=== PATIENT | male | born 1990 | race African-American/Black ===

== ENCOUNTER 2016-11-30 23:36 | Emergency (ER) | payer SELFPAY ==
--- NOTE | ~2016-11-30 | EKG ---
PATIENT: BELKIS RANDOLPH UNIT #: [id number] Ventricular Rate: 91 BPM Atrial Rate: 91 BPM P-R Interval: 148 ms QRS Duration: 96 ms Q-T Interval: 342 ms QTC Calculation(Bezet): 420 ms P [place]: 47 degrees Calculated R [place]: 81 degrees Calculated T [place]: 65 degrees Diagnosis Line: Normal sinus rhythm Diagnosis Line: Normal ECG Diagnosis Line: No previous ECGs available Diagnosis Line: Confirmed by SO SCHOFIELD MD ([id number]) on 12/01/2016 Diagnosis Line: 10:46:07 PM INTERPRETING MD: KANWAL SHI
--- NOTE | ~2016-11-30 | CR72 ---
[facility] A Service of [facility] RADIOLOGY TEXT RESULTS PATIENT: BELKIS RANDOLPH JR LOCATION: [facility] : 91 UNIT #: [id number] AGE: [address]: Derek Salazar MD SEX: M ORDER DR: [id number] [facility] [address] [place], [place] [address] [id number] E MR#: [id number] Acc #: [id number] NAME: BELKIS RANDOLPH JR : 1990 SEX: M STUDY DATE/TIME: 12/01/2016 00:16 UNIT: [facility] ROOM: STUDY DESCRIPTION: CR Chest Single View Portable Attending Physician: Derek Salazar M.D. Ordering Physician: Derek Salazar M.D. Primary Care Physician: Primary Care Physician No MEDICAL IMAGING REPORT This report is preliminary unless electronic signature is present EXAM Portable chest 12/01/2016 at 00:16 INDICATION Shortness of air and chest pain for 1 day. COMPARISON 12/02/2015. FINDINGS A single AP portable view of the chest shows both lungs to be clear. The heart is normal in size. The mediastinal contour is normal. No significant bone abnormalities are seen. IMPRESSION Normal portable chest. Dictated by... Jacob Caban Jr., M.D. THIS IS AN ELECTRONICALLY VERIFIED REPORT Jacob Caban Jr., M.D. at 12/01/2016 11:14 AM CJ/natanael TD: 12/01/2016 07:46 JOB #: [id number] MEDICAL IMAGING REPORT Page 1 of 1 COPY
== END 2016-12-01 01:23 | disposition home or self-care (01) ==
LOC: CED 23:36
DX: R07.89 Other chest pain (principal); Z87.891 Personal history of nicotine dependence
CPT/HCPCS: 71010; 93005; 99284

== ENCOUNTER 2017-02-15 16:42 | Emergency (ER) | payer SELFPAY ==
--- NOTE | ~2017-02-15 | EKG ---
PATIENT: BELKIS RANDOLPH UNIT #: [id number] Ventricular Rate: 96 BPM Atrial Rate: 96 BPM P-R Interval: 156 ms QRS Duration: 94 ms Q-T Interval: 334 ms QTC Calculation(Bezet): 421 ms P [place]: 47 degrees Calculated R [place]: 82 degrees Calculated T [place]: 52 degrees Diagnosis Line: Normal sinus rhythm Diagnosis Line: Normal ECG Diagnosis Line: Diagnosis Line: Confirmed by SO SCHOFIELD MD ([id number]) on 02/17/2017 Diagnosis Line: 5:36:28 AM INTERPRETING MD: KANWAL SHI
== END 2017-02-15 18:53 | disposition left against medical advice (07) ==
LOC: CED 16:42
DX: Z53.21 Procedure and treatment not carried out due to patient leaving prior to being seen by health care provider (principal)
CPT/HCPCS: 93005

== ENCOUNTER 2017-03-01 18:18 | Emergency (ER) | payer SELFPAY ==
--- NOTE | ~2017-03-01 | EKG ---
PATIENT: BELKIS RANDOLPH UNIT #: [id number] Ventricular Rate: 55 BPM Atrial Rate: 55 BPM P-R Interval: 114 ms QRS Duration: 100 ms Q-T Interval: 382 ms QTC Calculation(Bezet): 365 ms P [place]: 58 degrees Calculated R [place]: 84 degrees Calculated T [place]: 75 degrees Diagnosis Line: Sinus bradycardia Diagnosis Line: Otherwise normal ECG Diagnosis Line: When compared with ECG of 15-FEB-2017 16:47, Diagnosis Line: Vent. rate has decreased BY 41 BPM Diagnosis Line: QT has shortened Diagnosis Line: Confirmed by BIRD SHI, JESUS ([id number]) on Diagnosis Line: 03/02/2017 5:15:45 PM INTERPRETING MD: ELSI
--- NOTE | ~2017-03-01 | CR72 ---
[facility] A Service of [facility] & [facility] RADIOLOGY TEXT RESULTS PATIENT: BELKIS RANDOLPH JR LOCATION: [facility] : 91 UNIT #: [id number] AGE: [address]: Manish Gray MD SEX: M ORDER DR: [id number] [facility] [address] [place], [place] [address] [id number] E MR#: [id number] Acc #: [id number] NAME: BELKIS RANDOLPH JR : 1990 SEX: M STUDY DATE/TIME: 03/01/2017 19:24 UNIT: [facility] ROOM: STUDY DESCRIPTION: CR Chest Single View Portable Attending Physician: Mnaish Gray M.D. Ordering Physician: Ed Kiran Slade M.D. Primary Care Physician: No Primary Care Physician MEDICAL IMAGING REPORT This report is preliminary unless electronic signature is present EXAM Portable chest x-ray. HISTORY Chest pain. Sudden onset throbbing chest pain began this afternoon. TECHNIQUE 2 AP radiographs of the chest are presented. COMPARISON 12/01/2016 FINDINGS The lungs appear somewhat hyperinflated. Correlate with any known underlying chronic airway disease. There is no indication of acute infectious or inflammatory disease. No pleural effusion or pneumothorax and no suspicious nodule. The heart and mediastinum are normal in size and contour. No acute bony abnormality. Stable mild thoracic scoliosis. Dictated by... Uriel Ball M.D. THIS IS AN ELECTRONICALLY VERIFIED REPORT Uriel Ball M.D. at 03/02/2017 6:49 PM Kelvin TD: 03/02/2017 11:10 JOB #: [id number] MEDICAL IMAGING REPORT Page 1 of 1 COPY
[2017-03-01 20:08] LABS: BASOPHIL% 0.8 % (0-2.5); EOSINOPHIL# 0.3 X10e3 (0-0.7); EOSINOPHIL% 6.3 % (0.0-7.0); HEMATOCRIT 48.1 % (38.0-50.0); HEMOGLOBIN 16.5 gm/dL (13.0-16.0); LYMPHOCYTE# 1.3 X10e3 (1.0-3.5); LYMPHOCYTE% 31.3 % (17.0-45.0); MEAN CELL VOLUME 96.8 FL (83-96); MEAN CORPUSCULAR HEMOGLOBIN 33.1 PG (28-34); MEAN CORPUSCULAR HGB CONC 34.2 g/dL (30-36); MEAN PLATELET VOLUME 10.4 FL (6.5-11.5); MONOCYTE# 0.4 X10e3 (0-1.0); MONOCYTE% 9.9 % (3.0-12.0); NEUTROPHIL# 2.1 X10e3 (1.5-7.1); NEUTROPHIL% 51.7 % (40-75); PLATELET COUNT 135 X10e3 (140-420); RED BLOOD COUNT 4.97 X10e (3.90-5.60); RED CELL DISTRIBUTION WIDTH 12.6 % (11.0-15.5); WHITE BLOOD COUNT 4.1 X10e3 (4.0-10.5)
[2017-03-01 20:12] LABS: DIFF IND NO
[2017-03-01 20:18] LABS: PROTHROMBIN TIME (PATIENT) 11.1 SECONDS (10.0-11.7)
[2017-03-01 20:29] LABS: ALBUMIN SERUM 4.2 g/dL (3.5-5.0); BILIRUBIN, DIRECT 0.1 mg/dL (0.0-0.2); BILIRUBIN,INDIRECT 0.3 mg/dL (0.0-0.9); BILIRUBIN,TOTAL 0.4 mg/dL (0.2-2.0); BUN/CREATININE RATIO 9.09; CALCIUM SERUM 9.2 mg/dL (8.4-10.2); CREATININE SERUM 1.1 mg/dL (0.6-1.4); GLOM FILT RATE Estimated 107.6 mL/min (>60); POTASSIUM 3.8 mmol/L (3.5-5.1); PROTEIN TOTAL SERUM 7.2 g/dL (6.0-8.3)
[2017-03-01 20:35] LABS: POC - CKMB <1.0 ng/mL (0.0-7.9); POC - TROPONIN <0.05 ng/mL (<=0.05)
== END 2017-03-01 22:10 | disposition home or self-care (01) ==
LOC: CED 18:18
DX: R07.9 Chest pain, unspecified (principal)
CPT/HCPCS: 71010; 80048; 80076; 82553; 84484; 85025; 85610; 85730; 93005; 99285

== ENCOUNTER 2017-03-04 17:39 | Emergency (ER) | payer SELFPAY ==
--- NOTE | ~2017-03-04 | CR72 ---
[facility] A Service of [facility] & [facility] RADIOLOGY TEXT RESULTS PATIENT: BELKSI RANDOLPH JR LOCATION: [facility] : 91 UNIT #: [id number] AGE: [address]: Derek Salazar MD SEX: M ORDER DR: [id number] [facility] [address] [place], [place] [address] [id number] E MR#: [id number] Acc #: [id number] NAME: BELKIS RANDOLPH JR : 1990 SEX: M STUDY DATE/TIME: 03/04/2017 18:14 UNIT: [facility] ROOM: STUDY DESCRIPTION: CR Chest Single View Portable Attending Physician: Derek Salazar M.D. Ordering Physician: [facility] MEDICAL IMAGING REPORT This report is preliminary unless electronic signature is present EXAM Single view of the chest dated 03/04/2017. COMPARISON Single view chest dated 03/01/2017. HISTORY Chest pain today. FINDINGS A single AP portable view of the chest shows both lungs to be clear. The heart is normal in size. The mediastinal contour is normal. No significant bone abnormalities are seen. IMPRESSION Normal portable chest. Dictated by... Diann Rodriguez M.D. THIS IS AN ELECTRONICALLY VERIFIED REPORT Diann Rodriguez M.D. at 03/05/2017 1:16 PM CPR/pcl TD: 03/04/2017 21:25 JOB #: [id number] MEDICAL IMAGING REPORT Page 1 of 1 COPY
--- NOTE | ~2017-03-04 | EKG ---
PATIENT: BELKIS RANDOLPH UNIT #: [id number] Ventricular Rate: 75 BPM Atrial Rate: 75 BPM P-R Interval: 150 ms QRS Duration: 96 ms Q-T Interval: 354 ms QTC Calculation(Bezet): 395 ms P [place]: 67 degrees Calculated R [place]: 85 degrees Calculated T [place]: 75 degrees Diagnosis Line: Normal sinus rhythm with sinus arrhythmia Diagnosis Line: Normal ECG Diagnosis Line: When compared with ECG of 01-MAR-2017 19:29, Diagnosis Line: No significant change was found Diagnosis Line: Confirmed by MARIANNE MENDOZA MD ([id number]) on Diagnosis Line: 03/05/2017 10:40:22 AM INTERPRETING MD: KELLY SHI
[2017-03-04 18:38] LABS: BASOPHIL% 0.6 % (0-2.5); EOSINOPHIL# 0.1 X10e3 (0-0.7); EOSINOPHIL% 3.1 % (0.0-7.0); HEMATOCRIT 46.6 % (38.0-50.0); LYMPHOCYTE# 1.3 X10e3 (1.0-3.5); LYMPHOCYTE% 37.9 % (17.0-45.0); MEAN CELL VOLUME 97.2 FL (83-96); MEAN CORPUSCULAR HEMOGLOBIN 33.4 PG (28-34); MEAN CORPUSCULAR HGB CONC 34.4 g/dL (30-36); MEAN PLATELET VOLUME 10.3 FL (6.5-11.5); MONOCYTE# 0.4 X10e3 (0-1.0); MONOCYTE% 10.9 % (3.0-12.0); NEUTROPHIL# 1.6 X10e3 (1.5-7.1); NEUTROPHIL% 47.5 % (40-75); PLATELET COUNT 137 X10e3 (140-420); RED BLOOD COUNT 4.79 X10e (3.90-5.60); RED CELL DISTRIBUTION WIDTH 12.2 % (11.0-15.5); WHITE BLOOD COUNT 3.4 X10e3 (4.0-10.5)
[2017-03-04 18:41] LABS: DIFF IND NO
[2017-03-04 18:51] LABS: PARTIAL THROMBOPLASTIN TIME 27.5 SECONDS (23.5-31.3); PROTHROMBIN TIME (PATIENT) 11.1 SECONDS (10.0-11.7)
[2017-03-04 18:58] LABS: ALBUMIN SERUM 4.3 g/dL (3.5-5.0); BILIRUBIN, DIRECT 0.1 mg/dL (0.0-0.2); BILIRUBIN,INDIRECT 0.4 mg/dL (0.0-0.9); BILIRUBIN,TOTAL 0.5 mg/dL (0.2-2.0); CALCIUM SERUM 8.9 mg/dL (8.4-10.2); GLOM FILT RATE Estimated 120.7 mL/min (>60); POTASSIUM 3.9 mmol/L (3.5-5.1); PROTEIN TOTAL SERUM 7.2 g/dL (6.0-8.3)
[2017-03-04 20:14] LABS: POC - CKMB <1.0 ng/mL (0.0-7.9); POC - TROPONIN <0.05 ng/mL (<=0.05)
[2017-03-04 21:37] LABS: POC - CKMB <1.0 ng/mL (0.0-7.9); POC - TROPONIN <0.05 ng/mL (<=0.05)
== END 2017-03-04 21:55 | disposition home or self-care (01) ==
LOC: CED 17:39
PROVIDERS: Emergency Medicine
DX: R07.9 Chest pain, unspecified (principal)
CPT/HCPCS: 36415; 71010; 80048; 80076; 82553; 84484; 85025; 85610; 85730; 93005; 99285

== ENCOUNTER 2017-04-26 18:32 | Emergency (ER) | payer SELFPAY ==
[~2017-04-26] VITALS: Ht 182.9 cm; Wt 63.5 kg
== END 2017-04-26 20:15 | disposition left against medical advice (07) ==
LOC: CED 18:32
DX: Z53.21 Procedure and treatment not carried out due to patient leaving prior to being seen by health care provider (principal)